=== PATIENT | male | born 1965 | race Caucasian/White ===

== ENCOUNTER 2022-05-10 15:45 | Emergency (ER) | payer OTHER ==
[2022-05-10 15:55] VITALS: BMI 31.6
[2022-05-10 17:25] LABS: BASO % 0.9 % (0-2.0); EOS % 0.4 % (0-4.5); HEMATOCRIT 42.5 % (35.4-49); HEMOGLOBIN 14.2 GM/dL (11.7-16.9); LYMPH % 5.6 % (8-40); MCH 31.6 pg (25.7-33.7); MCHC 33.5 g/dl (32.0-35.9); MEAN CELL VOLUME 94.4 fl (80-96); MEAN PLT VOLUME 7.1 fl (7.5-11.1); MONO % 8.5 % (3.8-10.2); NEUT % 84.6 % (42.8-82.8); PLATELET COUNT 320 10^3/uL (134-434); RDW 12.8 % (11.9-15.9); WHITE BLOOD COUNT 11.4 K/mm3 (4.0-10.0)
[2022-05-10 17:44] LABS: BLOOD UREA NITROGEN 15.7 mg/dL (7-18); CALCIUM 9.1 mg/dL (8.5-10.1)
[2022-05-10 17:47] LABS: CREATININE 0.9 mg/dL (0.55-1.3)
[2022-05-10 17:49] LABS: BILIRUBIN,TOTAL 0.8 mg/dL (0.2-1); TOT PROT 7.7 g/dl (6.4-8.2)
[2022-05-10 19:10] VITALS: BP 133/68; PULSE 78; RESP 19; TEMP 98.7
[2022-05-10] MEDS ORDERED: AMOX TR/POT CLAV 875MG/125MG TABLETS (FP) PO STA (19:20)
[2022-05-10] MEDS ORDERED: AMOX TR/POT CLAV 875MG/125MG TABLETS (FP) ONE (19:29)
== END 2022-05-10 20:04 | disposition home or self-care (01) ==
LOC: JER 15:45
DX: U07.1 COVID-19 (principal); R55 Syncope and collapse
CPT/HCPCS: 0241U-QW; 36415; 71045-TC-FY; 80053; 84484; 85025; 93005; 93010; 99285-25

== ENCOUNTER 2023-03-22 04:51 | Day surgery (SDC) | payer OTHER ==
[2023-03-17 17:33] VITALS: BMI 28.8
[2023-03-22 17:21] VITALS: RESP 18
[2023-03-22 17:24] VITALS: BP 134/72; PULSE 70; TEMP 97.8
== END 2023-03-22 15:40 | disposition home or self-care (01) ==
LOC: JASU-SURG 04:51
PROVIDERS: ATTEND Urology
PROC: 0TF3XZZ Fragmentation in Right Kidney Pelvis, External Approach (ICD-10-PCS; principal; 2023-03-22 13:30)
DX: N20.0 Calculus of kidney (principal)